=== PATIENT | female | born 1995 | race Caucasian/White ===

== ENCOUNTER 2017-02-02 08:06 | Emergency (ER) | payer BC ==
[~2017-02-02] VITALS: Ht 157.5 cm; Wt 48.3 kg
[2017-02-02 08:12] VITALS: TEMP 36.9; Ht 157.5 cm; Wt 48.3 kg
[2017-02-02] MEDS ORDERED: SULF800T23 PO (09:18)
--- NOTE | 2017-02-02 09:32 | DIAGNOSTIC IMAGING REPORT ---
BREAST ULTRASOUND LIMITED UNILATERAL CLINICAL HISTORY: Lump in left breast. Pain and breast. COMPARISON STUDY: None. FINDINGS: Real-time sonographic images of the left breast was performed with inventory representative images submitted. Within the 5:00 subareolar location of the left breast there is a 2.6 x 1.9 x 1.1 cm complex collection. This contains a small tract to the skin surface. There are surrounding color flow and increased echogenicity within the fat. IMPRESSION: A 2.2 x 1.9 x 1.1 cm complex collection within the subareolar left breast. This could represent a distended duct or an abscess. A mass is considered less likely but not entirely excluded. Follow-up imaging at a dedicated breast care center is recommended for further evaluation. In addition, follow-up to resolution of this abnormality is recommended. Electronically signed by: Brenton Matthews M.D. 02/02/2017 9:30 AM Dictated Date/Time: 02/02/2017 9:26 AM
--- NOTE | 2017-02-02 09:52 | EMERGENCY ROOM VISIT NOTE ---
History Report prepared by Tyleribjacques: Dionicio Go Under the Supervision of: Dr. Barbi Martinez M.D. First contact with patient: 08:21 Chief Complaint: OTHER COMPLAINT Stated Complaint: LUMP IN BREAST,SWOLLEN,SEVERE PAIN History of Present Illness The patient is a 21 year old female who presents to the Emergency Room with complaints of worsening left breast infection beginning one week ago. She was seen at [facility] for her symptoms a week ago and was told to return for worsening symptoms. She is scheduled for an ultrasound of her left breast in two days. The patient notes that she has a nipple piercing of the left breast. She describes the area as feeling "hard", with redness and swelling. Source of History: patient Onset: One week ago Position: other (left breast) Quality: other (infection) Timing: worsening Note: Additional symptoms: redness, warmth and "hardness" of the breast. Review of Systems See HPI for pertinent positives & negatives. A total of 6 systems reviewed and were otherwise negative. Past Medical & Surgical Medical Problems: (1) No Known Active Medical Problems Family History No pertinent family history stated. Social History Smoking Status: Never Smoker Marital Status: in relationship Occupation Status: [employer] student Current/Historical Medications Scheduled Sulfa/Trimethoprim (Bactrim Ds 800MG/160MG), 2 TAB PO BID Allergies Coded Allergies: No Known Allergies (Unverified , 02/02/17) Physical Exam Vital Signs Date Time Temp Pulse Resp B/P (MAP) Pulse Ox O2 Delivery O2 Flow Rate FiO2 02/02/17 10:42 85 16 106/74 96 02/02/17 08:57 94 18 120/86 98 Room Air 02/02/17 08:12 36.9 84 18 105/63 98 Room Air Physical Exam Vital signs reviewed. General: Well-appearing female, in no significant distress. Musculoskeletal: Atraumatic, no peripheral edema. Neurologic: Patient awake alert and oriented x 3 Skin: Warm, dry, no rash. [place] sized, firm area behind the left nipple. No fluctuance, erythema or warmth. Medical Decision & Procedures ER Provider Diagnostic Interpretation: Radiology results as stated below per my review and radiologist interpretation: BREAST ULTRASOUND LIMITED UNILATERAL FINDINGS: Real-time sonographic images of the left breast was performed with field sales representative images submitted. Within the 5:00 subareolar location of the left breast there is a 2.6 x 1.9 x 1.1 cm complex collection. This contains a small tract to the skin surface. There are surrounding color flow and increased echogenicity within the fat. IMPRESSION: A 2.2 x 1.9 x 1.1 cm complex collection within the subareolar left breast. This could represent a distended duct or an abscess. A mass is considered less likely but not entirely excluded. Follow-up imaging at a dedicated breast care center is recommended for further evaluation. In addition, follow-up to resolution of this abnormality is recommended. Electronically signed by: Brenton Matthews M.D. 02/02/2017 9:30 AM ED Course 0824: Past medical records reviewed. The patient was evaluated in room B10. A complete history and physical examination was performed. 0945: I updated the patient on her case. Dr. Linda will see the patient. 1035: Upon reevaluation, the patient appeared to have improvement of her symptoms. Dr. Linda has aspirated the patient's abscess. I discussed findings with her. She verbalized agreement of the treatment plan. The patient was discharged home. Medical Decision Differential diagnosis: Etiologies such as cellulitis, abscess, MRSA infection, DVT, necrotizing fasciitis, dermatitis, drug eruption, as well as others were entertained. This patient was evaluated and appeared to be in no significant distress. Breast ultrasound was performed and reveals a fluid collection just deep to the nipple. Dr. Linda of general surgery was contacted. She aspirated the abscess. Please refer to Dr. Linda's notes for further details. Patient will continue the Bactrim as prescribed. She will return to the ER for worsening of symptoms or any medical concerns. Medication Reconcilliation Current Medication List: was personally reviewed by me Blood Pressure Screening Patient's blood pressure: Normal blood pressure Blood pressure disposition: Did not require urgent referral Consults Time Called: 09 Consulting Physician: Dr. Linda -General Surgery Returned Call: 0915 I reviewed the patient's case with Dr. Linda. General Surgery will see the patient. Impression Primary Impression: Breast abscess Scribe Attestation The scribe's documentation has been prepared under my direction and personally reviewed by me in its entirety. I confirm that the note above accurately reflects all work, treatment, procedures, and medical decision making performed by me. Departure Information Dispostion Home / Self-Care Referrals No Doctor, Assigned (PCP) Forms HOME CARE DOCUMENTATION FORM, IMPORTANT VISIT INFORMATION, WORK / SCHOOL INSTRUCTIONS Patient Instructions My [facility] Over Here Additional Instructions Diagnosis: Breast abscess Continue Bactrim as prescribed. Continue warm compresses and massage as directed by Dr. Linda. Follow-up with your physician upon return home. You may cancel the ultrasound in 2 days that is scheduled. He will need follow- up ultrasound in 2-3 months. Return to the ER for worsening of symptoms or any medical concerns.
[2017-02-02] MEDS ORDERED: LIDO/EPINEPHRINE/SOD BICARB 20 ML VIAL INFIL ONE (10:01)
--- NOTE | 2017-02-02 10:21 | Pre-Operative Consultation ---
History General Date of Service: Feb 02, 2017. Stated Complaint: left breast painful/ swollen HPI HPI: The patient is a 21 year old female being seen at the request of Barbi Martinez MD for a left breast abscess. She had nipple rings placed over a year ago. On Saturday, started to feel pain/ swelling of the left breast. Removed the nipple ring on Saturday, started bactrim on Sat. She is here visiting from [place] and over the last day, the pain/ swelling have progressed. Came to the ER and an ultrasound showed a 2.6 cm subareolar abscess at 5:00 left side. No fevers. No drainage. Historian: patient Anticipated Procedure: incision and drainage of left breast abscess Risk Assessment Daily beta vidal use?: No Problem List Medical Problems: (1) Breast abscess Status: Acute Medical & Surgical History Past Medical History: no pertinent history Past Surgical History: wisdom teeth Family History Family History: cancer, other (kidney stones) Social History Smoking Status: Never Smoker Occupation status: [email or web address] student Allergies Allergies: Coded Allergies: No Known Allergies (Unverified , 02/02/17) Review of Systems Review of Systems Constitutional: no symptoms reported Eyes: reports: no symptoms ENT: reports: no symptoms reported Respiratory: reports: no symptoms reported Gastrointestinal: no symptoms reported Genitourinary - Female: reports: no symptoms Musculoskeletal: no symptoms reported Integumentary: lumps (left breast) Neurologic: reports: no symptoms Psychiatric: reports: no symptoms Endocrine: no symptoms Physical Exam Physical Exam General Appearance: + WD/WN, No distress Ears, Nose, Throat: + normal ENT inspection Extremities: No abnormal range of motion, No edema Neurologic/Psychiatric: No abnormal string laster II-XII, No motor deficit/weakness Skin Characteristics: + other (left breast with 2 cm subareolar abscess at 5:00 , no overlying erythema), No abnormal color, No cyanosis Diagnostics Lab Interpretation Lab Interpretation: labs were reviewed Diagnostic Radiology Diagnostic Radiology US showed a 2.6 cm left subareolar abscess at 5:00 Impression Assessment and Plan Assessment and Plan 21 yr old nonsmoker with left subareolar abscess at 5:00 likely related to prior nipple ring. Discussed drainage/ aspiration. Consent signed. Left breast abscess aspirated at bedside (see procedure note) 2 cc of pus removed. No further abscess felt. OK to discharge on her bactrim with plans for f/u ultrasound in 2-3 months. Encouraged to massage area and do warm compresses.
--- NOTE | 2017-02-02 10:24 | Procedure Note ---
Procedure Note Date of Service Feb 02, 2017. Procedure Note Indications: left subareolar breast abscess not responding to antibiotics Anesthesia: local (1% lidocaine with epi) Surgeon: Karrie Linda M.D. Procedure: The left breast was prepped with betadine. The area over the abscess was anesthetized with 1% lidocaine with epi. A total of 6 cc was used. A 22 gauge needle was placed into the abscess and 2 cc of pus aspirated. Pressure on the nipple/ abscess was applied to ensure complete aspiration. No further material was obtained and clinically, the abscess appeared to have collapsed. A sterile dressing was applied. She tolerated the procedure well. Complications: None Specimens: None
[2017-02-02 10:42] VITALS: BP 106/74; PULSE 85; O2SAT 96
== END 2017-02-02 10:42 | disposition home or self-care (01) ==
LOC: C.EDB 08:08
DX: N61.1 Abscess of the breast and nipple (principal)